=== PATIENT | female | born 1980 | race Caucasian/White ===

== ENCOUNTER 2018-02-06 16:04 | Outpatient (CLI) | payer OTHER ==
[2018-02-06 16:22] LABS: BASOPHILS % 0.3 (0.0-1.5); EOSINOPHILS % 5.9 % (0.0-6.8); MEAN CORPUSCULAR HEMOGLOBIN 31.3 pg (28.0-34.0); MONOCYTES % 4.3 % (0.0-11.0); NEUTROPHILS # 4.6 # k/uL (1.4-7.7)
[2018-02-06 23:11] LABS: TOTAL PROTEIN 6.3 g/dL (6.0-8.5)
== END 2018-02-06 16:06 ==
LOC: LAB 16:04
PROVIDERS: ATTEND Physician Assistant
DX: Z00.00 Encounter for general adult medical examination without abnormal findings (principal)
CPT/HCPCS: 80053; 85025